=== PATIENT | female | born 1985 | race Caucasian/White ===

== ENCOUNTER → 2017-01-16 | Outpatient (CLI) | payer OTHER ==
--- NOTE | 2017-01-17 11:02 | DI ---
US BRST U/L OR B/L,01/16/2017 11:03 AM: Clinical History: Fibrocystic disease of the breasts. Previous Exam: None at this facility. Findings: Physical examination revealed diffusely nodular parenchymal bilaterally without any definite masses. Sonographic evaluation was performed in real-time demonstrating no evidence of mass nor cyst. There a re normal fibroglandular elements noted. Impression: No mammographic evidence of malignancy. BIRADS: 2: Benign findings Recommendations: Annual screening beginning at age 40. Note: Breast examination has been discussed and encouraged, and the patient informed to return if the re is any new palpable abnormality in the interval between screening. Benign findings.
== END ==
LOC: US 10:56
PROVIDERS: ATTEND Family Medicine
DX: N60.12 Diffuse cystic mastopathy of left breast (principal)
CPT/HCPCS: 76641